=== PATIENT | female | born 1935 | race Two or more races ===

== ENCOUNTER 2023-07-02 06:39 | Inpatient (IN) | payer SELFPAY ==
[~2023-07-02] VITALS: Ht 152.4 cm; Wt 70.5 kg
[~2023-07-02 06:39] MED LIST: ENAL5TAB85
[2023-07-02 07:52] LABS: Basophils # (auto) 0.1 10 ^3/uL (0-0.2); Basophils % (auto) 0.9 % (0.0-2.0); Eosinophils # (auto) 0 10 ^3/uL (0-0.8); Eosinophils % (auto) 0.3 % (0.0-7.0); Hematocrit 38.1 % (36.0-46.0); Hemoglobin 12.5 g/dL (12.2-16.2); Lymphocytes # (auto) 1.1 10 ^3/uL (0.4-5.4); Mean Corpuscular Hemoglobin 28.4 pg (28.0-32.0); Mean Corpuscular Hgb Conc. 32.8 g/dL (32.0-36.0); Mean Corpuscular Volume 86.3 fL (80.0-100.0); Monocytes # (auto) 0.2 10 ^3/uL (0-1.3); Monocytes % (auto) 2.5 % (0.0-12.0); Neutrophils # (auto) 4.8 10 ^3/uL (1.6-8.6); Neutrophils % (auto) 78.3 % (37.0-80.0); Nucleated Red Blood Cells % 0.1 %; Red Blood Cells 4.42 10^6/uL (4.0-5.20); Red Cell Distribution Width 14.3 % (11.8-14.3); White Blood Cell 6.2 10^3/uL (4.4-10.8)
[2023-07-02 07:56] LABS: Alanine Aminotransferase 13 U/L (7-40); Albumin 4.2 g/dL (3.2-4.8); Alkaline Phosphatase 69 U/L (46-116); Anion Gap 7 (5-15); Aspartate Aminotransferase 22 U/L (13-40); BUN/Creatinine Ratio 12.9 (10.0-20.0); Blood Alcohol < 3.0 mg/dL (<10); Blood Urea Nitrogen 13 mg/dL (9-23); Calcium 9.6 mg/dL (8.5-10.1); Carbon Dioxide 25 mmol/L (20-30); Chloride 108 mmol/L (98-107); Glucose 163 mg/dL (74-106); Sodium 140 mmol/L (136-145)
[2023-07-02 07:57] LABS: Bilirubin, Total 0.7 mg/dL (0.2-1.0); Total Protein 7.4 g/dL (5.7-8.2)
[2023-07-02] MEDS ORDERED: LORazepam 2MG/ML-1ML VIAL IM ONE (09:30)
[2023-07-02] MEDS ORDERED: LORazepam 2MG/ML-1ML VIAL ONE (09:58)
[2023-07-02 10:00] VITALS: PULSE 106; RESP 25; O2SAT 96
[2023-07-02 10:58] LABS: Amphetamine Screen, Urine Neg (NEGATIVE)
[2023-07-02 10:59] LABS: Barbiturate Scree,Urine Neg (NEGATIVE); Benzodiazephine Screen, Urine Neg (NEGATIVE)
[2023-07-02 11:00] LABS: Cannabinoid Screen, Urine Neg (NEGATIVE); Cocaine Screen, Urine Neg (NEGATIVE); Opiate Scree,Urine Neg (NEGATIVE); Phencyclidine Screen, Urine Neg (NEGATIVE)
[2023-07-02] MEDS ORDERED: ENOXAPARIN SOD 100 MG/1 ML SYRINGE SC ONE (11:00)
[2023-07-02 11:13] LABS: Urine Bacteria NONE SEEN /hpf (None Seen); Urine Blood Negative /uL (Negative); Urine Clarity Clear (Clear); Urine Color Yellow (Yellow); Urine Mucus FEW (None Seen); Urine Protein, UAD 1+ (Negative); Urine Specific Gravity 1.019 (1.001-1.035); Urine Urobilinogen Normal (Negative); Urine WBC 13 /hpf (0 - 5); Urine pH 6.5 (5.0-8.0)
[2023-07-02] MEDS ORDERED: ONDANSETRON HCL 4 MG/2 ML VIAL IV PRN (13:30)
[2023-07-02] MEDS: SODIUM CHLORIDE 0.9% 1,000 ML IV SCH (13:36)
[2023-07-02 13:43] LABS: Triglycerides 103 mg/dL (< 150)
[2023-07-02 13:44] LABS: LDL Cholesterol 113 mg/dL (< 100)
[2023-07-02 13:45] LABS: Cholesterol 191 mg/dL (< 200); HDL Cholesterol 63 mg/dL (40-59)
[2023-07-02] MEDS ORDERED: HALOPERIDOL LACTATE 5 MG/ML INJ VIAL IM ONE (17:15)
[2023-07-02] MEDS: ENALAPRIL MALEATE 2.5 MG TAB PO SCH (18:00)
[2023-07-02 19:53] VITALS: PULSE 107; RESP 22; O2SAT 97
[2023-07-02] MEDS: ATORVASTATIN 20 MG TAB PO SCH (22:00)
[2023-07-03] MEDS ORDERED: ENAL1TAB42 PO (05:59)
[2023-07-03] MEDS ORDERED: QUET100T47 PO (05:59)
[2023-07-03] MEDS ORDERED: CYA100I PO (05:59)
[2023-07-03] MEDS ORDERED: SIMV20TA20 PO (05:59)
[2023-07-03] MEDS ORDERED: CHOL20007 PO (05:59)
[2023-07-03] MEDS ORDERED: OXYB10GE PO (05:59)
[2023-07-03] MEDS: SODIUM CHLORIDE 0.9% 1,000 ML IV SCH ×2 (06:10→22:50)
[2023-07-03 07:07] LABS: Alanine Aminotransferase 21 U/L (7-40); Albumin 4.2 g/dL (3.2-4.8); Alkaline Phosphatase 65 U/L (46-116); Anion Gap 9 (5-15); Aspartate Aminotransferase 80 U/L (13-40); BUN/Creatinine Ratio 17.3 (10.0-20.0); Blood Urea Nitrogen 18 mg/dL (9-23); Calcium 9.7 mg/dL (8.5-10.1); Carbon Dioxide 23 mmol/L (20-30); Chloride 107 mmol/L (98-107); Glucose 129 mg/dL (74-106); Potassium 3.5 mmol/L (3.5-5.1); Sodium 139 mmol/L (136-145)
[2023-07-03 07:08] LABS: Total Protein 7.3 g/dL (5.7-8.2)
[2023-07-03 07:30] VITALS: RESP 17; O2SAT 94
[2023-07-03 08:05] LABS: Basophils # (auto) 0.1 10 ^3/uL (0-0.2); Basophils % (auto) 0.6 % (0.0-2.0); Eosinophils # (auto) 0 10 ^3/uL (0-0.8); Hematocrit 37.8 % (36.0-46.0); Hemoglobin 12.4 g/dL (12.2-16.2); Mean Corpuscular Hemoglobin 28.2 pg (28.0-32.0); Mean Corpuscular Hgb Conc. 32.8 g/dL (32.0-36.0); Mean Corpuscular Volume 86.1 fL (80.0-100.0); Monocytes # (auto) 0.7 10 ^3/uL (0-1.3); Monocytes % (auto) 6.8 % (0.0-12.0); Neutrophils # (auto) 6.9 10 ^3/uL (1.6-8.6); Neutrophils % (auto) 71.6 % (37.0-80.0); Nucleated Red Blood Cells % 0.1 %; Red Blood Cells 4.39 10^6/uL (4.0-5.20); Red Cell Distribution Width 14.4 % (11.8-14.3); White Blood Cell 9.7 10^3/uL (4.4-10.8)
[2023-07-03] MEDS ORDERED: QUEtiapine FUMARATE 25 MG TAB PO ONE (08:45)
[2023-07-03 09:00] VITALS: BP 160/74; PULSE 99; RESP 19; TEMP 99.5; O2SAT 96
[2023-07-03] MEDS: ENALAPRIL MALEATE 2.5 MG TAB PO SCH (10:43)
[2023-07-03] MEDS: ENOXAPARIN SOD 40 MG/0.4 ML SYRINGE SC SCH (10:44)
[2023-07-03] MEDS ORDERED: LORazepam 2MG/ML-1ML VIAL IV PRN (11:45)
[2023-07-03 13:00] VITALS: BP 136/75; PULSE 101; RESP 20; TEMP 98.5; O2SAT 90
[2023-07-03 17:00] VITALS: BP 146/66; PULSE 97; RESP 20; TEMP 100.3; O2SAT 96
[2023-07-03] MEDS: ACETAMINOPHEN 325 MG TAB PO PRN (17:49)
[2023-07-03] MEDS ORDERED: HALOPERIDOL LACTATE 5 MG/ML INJ VIAL IM PRN (21:45)
[2023-07-03] MEDS: ATORVASTATIN 20 MG TAB PO SCH (22:00)
[2023-07-04 08:00] VITALS: RESP 17; O2SAT 94
[2023-07-04 08:04] LABS: Basophils # (auto) 0.1 10 ^3/uL (0-0.2); Basophils % (auto) 0.9 % (0.0-2.0); Eosinophils # (auto) 0.1 10 ^3/uL (0-0.8); Eosinophils % (auto) 1.2 % (0.0-7.0); Hematocrit 42.6 % (36.0-46.0); Lymphocytes # (auto) 1.4 10 ^3/uL (0.4-5.4); Lymphocytes % (auto) 24.7 % (10.0-50.0); Mean Corpuscular Hemoglobin 27.8 pg (28.0-32.0); Mean Corpuscular Hgb Conc. 30.5 g/dL (32.0-36.0); Monocytes # (auto) 0.4 10 ^3/uL (0-1.3); Monocytes % (auto) 7.5 % (0.0-12.0); Neutrophils # (auto) 3.8 10 ^3/uL (1.6-8.6); Neutrophils % (auto) 65.7 % (37.0-80.0); Nucleated Red Blood Cells % 0.1 %; Red Blood Cells 4.68 10^6/uL (4.0-5.20); Red Cell Distribution Width 15.2 % (11.8-14.3); White Blood Cell 5.8 10^3/uL (4.4-10.8)
[2023-07-04 08:44] VITALS: BP 131/64; PULSE 71; RESP 16; TEMP 97.7; O2SAT 97
[2023-07-04 08:53] LABS: Anion Gap 7 (5-15); Carbon Dioxide 27 mmol/L (20-30); Chloride 105 mmol/L (98-107); Potassium 3.7 mmol/L (3.5-5.1); Sodium 139 mmol/L (136-145)
[2023-07-04 08:59] LABS: BUN/Creatinine Ratio 18.5 (10.0-20.0); Blood Urea Nitrogen 17 mg/dL (9-23); Glucose 125 mg/dL (74-106)
[2023-07-04] MEDS: QUEtiapine FUMARATE 25 MG TAB PO SCH ×2 (09:02→22:16)
[2023-07-04] MEDS: ENOXAPARIN SOD 40 MG/0.4 ML SYRINGE SC SCH (09:02)
[2023-07-04] MEDS: ENALAPRIL MALEATE 2.5 MG TAB PO SCH (09:08)
[2023-07-04 09:13] LABS: Hepatitis B Surface Antigen Negative (Negative)
[2023-07-04 09:17] LABS: Folate (Folic Acid) 23.76 ng/mL (>5.38)
[2023-07-04 09:18] LABS: Free T4 (Free Thyroxine) 0.94 ng/dL (0.89-1.76)
[2023-07-04 09:33] LABS: Hepatitis A Ab IgM Negative
[2023-07-04 09:34] LABS: Hepatitis B Core IgM Negative; Hepatitis C Antibody Negative (Negative)
[2023-07-04] MEDS: SODIUM CHLORIDE 0.9% 1,000 ML IV SCH (15:38)
[2023-07-04 15:55] LABS: COVID19 ANTIGEN SOFIA FIA NEGATIVE (NEGATIVE); Rapid Influenza A Negative (Negative); Rapid Influenza B Negative (Negative)
[2023-07-04 20:00] VITALS: O2SAT 94
[2023-07-04] MEDS: ATORVASTATIN 20 MG TAB PO SCH (22:17)
[2023-07-04] MEDS: ACETAMINOPHEN 325 MG TAB PO PRN (23:12)
[2023-07-05 06:00] VITALS: BP 129/79; PULSE 79; RESP 20; TEMP 98.3; O2SAT 96
[2023-07-05] MEDS: SODIUM CHLORIDE 0.9% 1,000 ML IV SCH (08:19)
[2023-07-05] MEDS: QUEtiapine FUMARATE 25 MG TAB PO SCH ×2 (08:43→21:42)
[2023-07-05] MEDS: ENALAPRIL MALEATE 2.5 MG TAB PO SCH (08:51)
[2023-07-05] MEDS: ENOXAPARIN SOD 40 MG/0.4 ML SYRINGE SC SCH (08:52)
[2023-07-05 09:00] VITALS: BP 138/60; PULSE 98; RESP 17; O2SAT 97
[2023-07-05 10:39] LABS: Alanine Aminotransferase 34 U/L (7-40); Albumin 3.8 g/dL (3.2-4.8); Alkaline Phosphatase 54 U/L (46-116); Anion Gap 8 (5-15); Aspartate Aminotransferase 73 U/L (13-40); Bilirubin, Total 0.6 mg/dL (0.2-1.0); Blood Urea Nitrogen 16 mg/dL (9-23); Calcium 9.2 mg/dL (8.5-10.1); Carbon Dioxide 23 mmol/L (20-30); Chloride 107 mmol/L (98-107); Glucose 118 mg/dL (74-106); Potassium 4.4 mmol/L (3.5-5.1); Sodium 138 mmol/L (136-145); Total Protein 6.9 g/dL (5.7-8.2)
[2023-07-05 17:00] VITALS: BP 136/64; PULSE 91; RESP 18; TEMP 98.1; O2SAT 96
[2023-07-05] MEDS: ATORVASTATIN 20 MG TAB PO SCH (21:41)
[2023-07-05 22:00] VITALS: BP 139/96; PULSE 77; RESP 18; TEMP 97.6; O2SAT 95
[2023-07-06] MEDS: SODIUM CHLORIDE 0.9% 1,000 ML IV SCH ×2 (00:50→17:30)
[2023-07-06 05:00] VITALS: BP 112/88; PULSE 78; RESP 17; TEMP 98.1; O2SAT 95
[2023-07-06 06:15] LABS: Basophils # (auto) 0.1 10 ^3/uL (0-0.2); Eosinophils # (auto) 0.2 10 ^3/uL (0-0.8); Eosinophils % (auto) 2.9 % (0.0-7.0); Hemoglobin 11.9 g/dL (12.2-16.2); Lymphocytes # (auto) 1.6 10 ^3/uL (0.4-5.4); Lymphocytes % (auto) 26.5 % (10.0-50.0); Mean Corpuscular Hgb Conc. 32.9 g/dL (32.0-36.0); Mean Corpuscular Volume 85.2 fL (80.0-100.0); Monocytes # (auto) 0.5 10 ^3/uL (0-1.3); Monocytes % (auto) 8.3 % (0.0-12.0); Neutrophils # (auto) 3.7 10 ^3/uL (1.6-8.6); Neutrophils % (auto) 61.3 % (37.0-80.0); Red Blood Cells 4.23 10^6/uL (4.0-5.20); Red Cell Distribution Width 14.3 % (11.8-14.3)
[2023-07-06 06:28] LABS: Anion Gap 7 (5-15); Calcium 8.9 mg/dL (8.7-10.4); Carbon Dioxide 25 mmol/L (20-30); Chloride 106 mmol/L (98-107); Potassium 4.1 mmol/L (3.5-5.1); Sodium 138 mmol/L (136-145)
[2023-07-06 06:34] LABS: BUN/Creatinine Ratio 18.4 (10.0-20.0); Blood Urea Nitrogen 16 mg/dL (9-23); Glucose 113 mg/dL (74-106)
[2023-07-06 08:00] VITALS: PULSE 93; RESP 17; O2SAT 97
[2023-07-06 09:00] VITALS: BP 122/81; PULSE 93; RESP 17; TEMP 98.1; O2SAT 97
[2023-07-06] MEDS: QUEtiapine FUMARATE 25 MG TAB PO SCH ×2 (09:17→22:00)
[2023-07-06] MEDS: ENALAPRIL MALEATE 2.5 MG TAB PO SCH (09:17)
[2023-07-06] MEDS: ENOXAPARIN SOD 40 MG/0.4 ML SYRINGE SC SCH (09:18)
[2023-07-06 13:00] VITALS: BP 106/48; PULSE 67; RESP 17; TEMP 97.8; O2SAT 96
[2023-07-06 16:51] VITALS: BP 131/57; PULSE 89; RESP 17; TEMP 98.5; O2SAT 98
[2023-07-06 18:09] LABS: Urine Bacteria FEW /hpf (None Seen); Urine Blood 2+ /uL (Negative); Urine Clarity HAZY (Clear); Urine Color Colorless (Yellow); Urine Mucus FEW (None Seen); Urine Protein, UAD TRACE (Negative); Urine Specific Gravity 1.013 (1.001-1.035); Urine Urobilinogen Normal (Negative); Urine WBC 221 /hpf (0 - 5); Urine pH 5.5 (5.0-8.0)
[2023-07-06 22:00] VITALS: BP 125/91; PULSE 119; RESP 18; TEMP 98.5; O2SAT 98
[2023-07-06] MEDS: ATORVASTATIN 20 MG TAB PO SCH (22:00)
[2023-07-07 05:00] VITALS: BP 146/65; PULSE 104; RESP 18; TEMP 97.9; O2SAT 96
[2023-07-07 08:00] VITALS: PULSE 90; RESP 20; O2SAT 98
[2023-07-07 09:00] VITALS: BP_SYST 115; BP_SYST 118; BP_DIAS 59; BP_DIAS 83; PULSE 115; PULSE 90; RESP 18; RESP 20; TEMP 97.5; O2SAT 100; O2SAT 98
[2023-07-07] MEDS: ENALAPRIL MALEATE 2.5 MG TAB PO SCH (09:18)
[2023-07-07] MEDS: QUEtiapine FUMARATE 25 MG TAB PO SCH ×2 (09:18→22:04)
[2023-07-07] MEDS: ENOXAPARIN SOD 40 MG/0.4 ML SYRINGE SC SCH (09:21)
[2023-07-07] MEDS: SODIUM CHLORIDE 0.9% 1,000 ML IV SCH (10:10)
[2023-07-07 13:00] VITALS: BP_SYST 110; BP_SYST 90; BP_DIAS 60; BP_DIAS 64; PULSE 109; PULSE 90; RESP 18; TEMP 97.7; TEMP 98.9; O2SAT 94; O2SAT 99
[2023-07-07] MEDS: cefTRIAXone 1GM/50ML D5W 50 ML IV SCH (13:53)
[2023-07-07 17:00] VITALS: BP 135/69; PULSE 96; RESP 18; TEMP 97.9; O2SAT 94
[2023-07-07] MEDS: ACETAMINOPHEN 325 MG TAB PO PRN (18:17)
[2023-07-07 22:00] VITALS: BP 112/50; PULSE 77; RESP 16; TEMP 97.3; O2SAT 97
[2023-07-07] MEDS: ATORVASTATIN 20 MG TAB PO SCH (22:04)
[2023-07-08] MEDS: SODIUM CHLORIDE 0.9% 1,000 ML IV SCH (02:50)
[2023-07-08 05:00] VITALS: BP 101/49; PULSE 71; RESP 16; TEMP 97.3; O2SAT 95
[2023-07-08] MEDS: cefTRIAXone 1GM/50ML D5W 50 ML IV SCH (08:34)
[2023-07-08 09:00] VITALS: BP 111/81; PULSE 85; RESP 17; TEMP 98.1; O2SAT 97
[2023-07-08] MEDS: QUEtiapine FUMARATE 25 MG TAB PO SCH (10:54)
[2023-07-08] MEDS: ENOXAPARIN SOD 40 MG/0.4 ML SYRINGE SC SCH (10:54)
[2023-07-08] MEDS: ENALAPRIL MALEATE 2.5 MG TAB PO SCH (10:54)
[2023-07-08 13:00] VITALS: BP 117/79; PULSE 94; RESP 17; TEMP 97.7; O2SAT 96
[2023-07-08] MEDS ORDERED: CEPH250C PO (14:42)
[2023-07-08] MEDS ORDERED: HAL5T PO (15:01)
[2023-07-08 15:05] VITALS: BP 117/79; PULSE 94; RESP 17; TEMP 97.7; O2SAT 96
[2023-07-08 17:00] VITALS: BP 113/78; PULSE 90; RESP 17; TEMP 98.1; O2SAT 98
== END 2023-07-08 19:30 | disposition home or self-care (01) | DRG 91 ==
LOC: EDBD 06:39 → ER 06:39 → EDUNIT# 06:39 → OVERFLOW 13:22 → WEST WING 20:06
PROVIDERS: ADMIT Internal Medicine; ATTEND Student in an Organized Health Care Education/Training Program
DX: G92.8 Other toxic encephalopathy (principal); I21.A1 Myocardial infarction type 2; I50.41 Acute combined systolic (congestive) and diastolic (congestive) heart failure; N39.0 Urinary tract infection, site not specified; I11.0 Hypertensive heart disease with heart failure; E66.9 Obesity, unspecified; E78.5 Hyperlipidemia, unspecified; F02.80 Dementia in other diseases classified elsewhere, unspecified severity, without behavioral disturbance, psychotic disturbance, mood disturbance, and anxiety; I34.81 Nonrheumatic mitral (valve) annulus calcification; F03.90 Unspecified dementia, unspecified severity, without behavioral disturbance, psychotic disturbance, mood disturbance, and anxiety; R74.01 Elevation of levels of liver transaminase levels; I16.0 Hypertensive urgency; R73.03 Prediabetes; R73.9 Hyperglycemia, unspecified; Z79.899 Other long term (current) drug therapy; Z20.822 Contact with and (suspected) exposure to COVID-19; Z68.30 Body mass index [BMI] 30.0-30.9, adult
CPT/HCPCS: 36415; 70450; 71045; 71046; 80048; 80053; 80061; 80074; 80307; 80320; 81001; 82140; 82607; 82746; 82962; 83036; 83605; 83880; 84439; 84443; 84484; 85025; 87040; 87086; 87426; 87804; 93005; 93306; 95819; 96372; 97110; 97116; 97163; 97530; 99291; G0378; J0696